=== PATIENT | female | born 1950 | race American Indian/Alaskan Native ===

== ENCOUNTER 2017-08-12 14:53 | Emergency (ER) | payer MEDICARE ==
--- NOTE | 2017-08-15 10:31 | CR ---
INDICATION: Fall/trauma left ribs. LEFT RIBS WITH CHEST: CHEST: PA view of the chest was obtained 08/12/2017 and compared with 2008, revealing increased calcification in the arch of the aorta with minimally increased tortuosity of the aorta. The heart remains normal in size and shape. An active infiltrate, effusion, contusion, or pneumothorax was not identified. IMPRESSION: No acute process - progressive ASD aorta. LEFT RIBS: Three views of the left ribs were obtained 08/12/2017 and compared with 11/11/2008. Laterally at the 5th and 6th ribs, there is slight deformity, compatible with old healed fracture sites present on the previous examination. An acute fracture or other definite bony abnormality of the ribs was not identified. IMPRESSION: 1. No acute fracture site identified. 2. Two old healed fracture sites again noted. MTDD
--- NOTE | 2017-08-15 10:34 | CR ---
INDICATION: Trauma to leg, dog knocked down. LEFT TIBIA/FIBULA: Frontal and lateral views of the left tibia and fibula revealed minimal degenerative change at the medial intercondylar spine. The ankle mortise and knee were otherwise unremarkable with no evidence of a fracture or dislocation identified. MTDD
--- NOTE | 2017-08-15 10:55 | ER ---
DATE SEEN: 08/12/2017 CHIEF COMPLAINT: Fall. HISTORY OF PRESENT ILLNESS: This 67-year-old woman presents with a history of walking a dog. The dog tripped her and she fell on her left chest and sprained her left ankle, and has left tib-fib discomfort. She denies shortness of breath or cough or chest pain except for the mild left axillary region discomfort. The patient is a [id number] smoker (half a pack per day for 40 years), has hypertension, status post bilateral bunionectomy, hammertoe surgery, and compromised left foot MP joint with instability secondary to surgery, is edentulous, has fibromyalgia, GERD, bladder spasm, denies drinking alcohol, and has ulcer disease. ALLERGIES: Gabapentin, IVP dye. MEDICATIONS: None. REVIEW OF SYSTEMS: Otherwise negative except as noted in HPI and past medical history. PHYSICAL EXAMINATION: VITAL SIGNS: Blood pressure 116/61, heart rate 93, respirations 18, oxygen saturation 93% (low normal), and temperature 37.4 degrees centigrade. The 93% may be her normal as she has chronic obstructive lung disease from smoking. BMI is 28.9 kg/m2, 67.1 kg. GENERAL: Alert woman, who is edentulous, is in mild distress. She is accompanied by daughter. HEENT: PERRLA intact. Pharynx without abnormality except for edentulous appearance. Uvula and tongue are midline. Speech appropriate. NECK: No bruits. No thyromegaly. No masses in the neck. No murmurs. No tracheal tug. No tracheal deviation. LUNGS: Clear without rales, rhonchi, or wheezes. HEART: S1, S2. No murmur. Chest wall mild tenderness of the left 11th, 10th, 8th, 7th, and 6th ribs. There is reproducible pain at the midclavicular line and the anterior axillary line and also the sternal chondral joints. No ecchymosis, swelling, or laceration noted in the chest wall. ABDOMEN: Soft. No hepatosplenomegaly. No guarding. No abdominal discomfort. Bowel sounds normal. Palpation of the thoracic spine demonstrates pain from T3 down to L5. She states she has fibromyalgia and also states she has chronic low back and upper back pain, has more upper back pain today than usual. Today,she attributes the back to her baseline that she always has back pain and "arthritis." NEUROLOGIC: Deep tendon reflexes normal upper and lower extremities. Cranial nerves 2 through 12 intact. Gait appropriate and oriented x3. LEFT ANKLE: there is no swelling of the ankle, there is an abrasion of the ankle dermis. Inversion and eversion are without abnormality and no abnormality in the drawer sign. No proximal 5th metatarsal pain or pain of the metatarsals or phalanges of the toes. X-ray of her knee, left tib-fib, and left ankle are negative. No fracture. There is mild osteoporosis. The patient noted she has had a DEXA scan last week and it was a negative number, which means she does have osteoporosis. This confirms my impression of osteoporosis. Rib x-ray did not reveal fracture. ASSESSMENT: Soft tissue contusion left ribs with traumatic sternal chondritis, costochondritis left chest, left ankle sprain and abrasion. DIAGNOSES: 1. Left chest wall trauma with mild costochondritis, sternal chondritis, left ribs 6th through 11th. 2. Left tib-fib contusion, left ankle sprain, mild and 4 abrasions to the lower extremities. The patient will follow up next week and gradually progress or increase activity as tolerated.Because of her age and BEERS criteria, no narcotics were given to the patient. The patient advised the reason for not using narcotics. She felt comfortable with this plan. 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 OTHER DIAGNOSES: 1. Fibromyalgia, edentulous. 2. Mild shortness of breath secondary to left chest contusion. 3. Gastroesophageal reflux disease. 4. Bladder spasm, relieved with oxybutynin. 5. Depression. 6. Hypertension. 7. Mildly overweight. 8. History of gastric bypass and bunion surgery. The patient to follow up with doctor next week. /[id number] MAGGIE/NALINI CALVILLO
== END 2017-08-12 16:35 | disposition home or self-care (01) ==
LOC: FB.ED 14:53
DX: S93.402A Sprain of unspecified ligament of left ankle, initial encounter (principal); S20.212A Contusion of left front wall of thorax, initial encounter; M94.0 Chondrocostal junction syndrome [Tietze]; K21.9 Gastro-esophageal reflux disease without esophagitis; I10 Essential (primary) hypertension; F32.9 Major depressive disorder, single episode, unspecified; E66.3 Overweight; M79.7 Fibromyalgia; Z88.8 Allergy status to other drugs, medicaments and biological substances; Z91.041 Radiographic dye allergy status; W01.0XXA Fall on same level from slipping, tripping and stumbling without subsequent striking against object, initial encounter
CPT/HCPCS: 71101-LT; 73590-LT; 99283

== ENCOUNTER 2019-06-21 11:55 | Emergency (ER) | payer MEDICARE ==
[2019-06-21] MEDS ORDERED: traMADol 50 MG Tab PO ONE (12:27)
[2019-06-21] MEDS ORDERED: Acetaminophen 500 MG Tab PO ONE (12:27)
[2019-06-21] MEDS ORDERED: Cyclobenzaprine 10 MG Tab PO ONE (12:27)
--- NOTE | 2019-06-21 12:42 | EDM.PDOC ---
ED HPI GENERAL MEDICAL PROBLEM - General Chief Complaint: Back Pain or Injury Time Seen by Provider: 06/21/19 12:00 Source of Information: Reports: Patient History Limitations: Reports: No Limitations - History of Present Illness INITIAL COMMENTS - FREE TEXT/NARRATIVE: Patient presented to the ED because of a chronic neck and left shoulder pain. She has a history of OA and is taking tylneol for pain without any significant relief. Her friend gave her tramadol which she took and helped with her pain. Her pain is 5/10. Lower back radiating into R knee, L shoulder Pain Score (Numeric/FACES): 10 - Related Data Allergies Allergy/AdvReac Type Severity Reaction Status Date / Time gabapentin Allergy Confusion Verified 06/21/19 12:00 Iodinated Contrast Media Allergy Burning Verified 06/21/19 12:00 [Iodinated Contrast- Oral and IV Dye] Home Meds: Home Meds Aspirin 81 mg PO DAILY 08/12/17 [History] Metoprolol Succinate 25 mg PO DAILY 08/12/17 [History] busPIRone [Buspar] 5 mg PO TID 08/12/17 [History] Folic Acid 1 mg DAILY 06/21/19 [History] Pantoprazole Sodium [Protonix] 40 mg PO BID 06/21/19 [History] Sucralfate 1 gm QID 06/21/19 [History] Venlafaxine HCl [Venlafaxine ER] 300 mg DAILY 06/21/19 [History] tiZANidine 2 mg PO BEDTIME 06/21/19 [History] tiZANidine 2 mg PO Q8H PRN #30 cap 06/21/19 [Rx] traMADol HCl [Tramadol HCl] 100 mg PO Q8H PRN #30 tablet 06/21/19 [Rx] Past Medical History Cardiovascular History: Reports: Hypertension Gastrointestinal History: Reports: Gastritis, GERD, GI Bleed, PUD Genitourinary History: Reports: Urinary Incontinence Other Genitourinary History: stress incont. Other [employer]ILRO[employer] History: G0 Musculoskeletal History: Reports: Arthritis, Back Pain, Chronic, Fracture, Fibromyalgia, Osteoarthritis Other Musculoskeletal History: hx fx R forearm & wrist, Psychiatric History: Reports: Addiction, Anxiety, Depression, Panic Attack Other Psychiatric History: hx ETOH abuse, recovering x past 4 years Endocrine/Metabolic History: Reports: Obesity/BMI 30+ Hematologic History: Reports: Anemia, Blood Transfusion(s) - Infectious Disease History Infectious Disease History: Reports: Chicken Pox, Measles, Mumps, Shingles - Past Surgical History Cardiovascular Surgical History: Reports: None GI Surgical History: Reports: Appendectomy, Bariatric Procedure, Cholecystectomy , Colonoscopy, EGD, Hernia Repair/Other Female Surgical History: Reports: Hysterectomy, Salpingo-Oophorectomy Neurological Surgical History: Reports: Spinal Fusion Other Neurological Surgeries/Procedures: spinal fusion x 2 Musculoskeletal Surgical History: Reports: None, Other (See Below) Other Musculoskeletal Surgeries/Procedures:: back surgery/fusion x 2 Social & Family History - Family History Family Medical History: Noncontributory - Tobacco Use Smoking Status *Q: Current Every Day Smoker Years of Tobacco use: 50 Packs/Tins Daily: 0.2 - Caffeine Use Caffeine Use: Reports: Coffee, Soda - Recreational Drug Use Recreational Drug Use: No ED ROS GENERAL - Review of Systems Review Of Systems: See Below Constitutional: Reports: No Symptoms HEENT: Reports: No Symptoms Respiratory: Reports: No Symptoms Cardiovascular: Reports: No Symptoms Endocrine: Reports: No Symptoms GI/Abdominal: Reports: No Symptoms : Reports: No Symptoms Musculoskeletal: Reports: Shoulder Pain, Muscle Stiffness Skin: Reports: No Symptoms Neurological: Reports: No Symptoms Psychiatric: Reports: No Symptoms Hematologic/Lymphatic: Reports: No Symptoms ED EXAM,LOWER BACK PAIN/INJURY - Physical Exam Exam: See Below Exam Limited By: No Limitations General Appearance: Alert, No Apparent Distress Eye Exam: Bilateral Eye: PERRL Ears: Normal External Exam, Normal Canal Nose: Normal Inspection, Normal Mucosa, No Blood Throat/Mouth: Normal Inspection, Normal Lips, Normal Teeth Head: Atraumatic, Normocephalic Neck: Normal Inspection, Supple, Non-Tender, Full Range of Motion Respiratory/Chest: No Respiratory Distress, Lungs Clear, Normal Breath Sounds Cardiovascular: Normal Peripheral Pulses, Regular Rate, Rhythm, No Edema, No Gallop GI/Abdominal: Normal Bowel Sounds, Soft, Non-Tender, No Organomegaly Back Exam: Normal Inspection, Full Range of Motion Extremities: Normal Inspection, Normal Range of Motion, Other (tenderness left shoulder.) Course - Vital Signs Text/Narrative:: tramadol 100 mg po x1 tylenol 1000 mg po x1 Last Recorded V/S: Last Vital Signs Temp 36.9 C 06/21/19 11:55 Pulse 67 06/21/19 13:00 Resp 18 06/21/19 13:00 BP 152/63 H 06/21/19 13:00 Pulse Ox 100 06/21/19 13:00 - Orders/Labs/Meds Meds: Medications Discontinued Medications Generic Name Dose Route Start Last Admin Trade Name Cruzitoq PRN Reason Stop Dose Admin Acetaminophen 1,000 mg 06/21/19 12:27 06/21/19 12:50 Tylenol Extra Strength PO 06/21/19 12:28 1,000 mg ONETIME ONE Administration Cyclobenzaprine HCl 10 mg 06/21/19 12:27 06/21/19 12:50 Flexeril PO 06/21/19 12:28 10 mg ONETIME ONE Administration Tramadol HCl 100 mg 06/21/19 12:27 06/21/19 12:50 Ultram PO 06/21/19 12:28 100 mg ONETIME ONE Administration Departure - Departure Time of Disposition: 13:30 Disposition: Home, Self-Care 01 Condition: Good Clinical Impression: Chronic pain, Osteoarthritis - Discharge Information Prescriptions: tiZANidine 2 mg PO Q8H PRN #30 cap PRN Reason: Muscle Spasm traMADol HCl [Tramadol HCl] 100 mg PO Q8H PRN #30 tablet PRN Reason: Pain Instructions: Cyclobenzaprine tablets, Osteoarthritis, Tramadol tablets, Chronic Pain, Adult Referrals: Nandini Gonzáles, HEALTH UNDERWRITER [Primary Care Provider] - Forms: ED Department Discharge Additional Instructions: please read discharge instructions on chronic pain and osteoarthritis take the following medicines all at the same time for better flores relief 1.Tizanidine 2mg every 8 hours as needed for muscle spasm 2.Tramadol 100 mg with tylenol 1000 mg every 8 hours as needed for pain Follow up as needed Sepsis Event Note - Evaluation Sepsis Screening Result: No Definite Risk - Focused Exam Vital Signs: Vital Signs Temp Pulse Resp BP Pulse Ox 06/21/19 13:00 67 18 152/63 H 100 06/21/19 11:55 36.9 C 50 L 18 133/71 99 Date Exam was Performed: 06/21/19 Time Exam was Performed: 22:55
== END 2019-06-21 13:13 | disposition home or self-care (01) ==
LOC: FB.ED 11:55
DX: M19.012 Primary osteoarthritis, left shoulder (principal); G89.29 Other chronic pain; K21.9 Gastro-esophageal reflux disease without esophagitis; F41.9 Anxiety disorder, unspecified; F32.9 Major depressive disorder, single episode, unspecified; E66.9 Obesity, unspecified; Z68.31 Body mass index [BMI] 31.0-31.9, adult; I10 Essential (primary) hypertension; F17.210 Nicotine dependence, cigarettes, uncomplicated; Z91.041 Radiographic dye allergy status; Z88.8 Allergy status to other drugs, medicaments and biological substances; Z79.82 Long term (current) use of aspirin; Z79.899 Other long term (current) drug therapy
CPT/HCPCS: 99283; A9270-GY

== ENCOUNTER 2020-04-23 17:04 | Emergency (ER) | payer MEDICARE ==
[2020-04-23] MEDS ORDERED: Sodium Chloride 0.9% 10 ML Syringe FLUSH PRN (17:11)
[2020-04-23] MEDS ORDERED: Morphine 2 MG/ML SYRINGE IVPUSH ONE (17:12)
[2020-04-23] MEDS ORDERED: Sodium Chloride 0.9% 1,000 ML IV SCH (17:15)
--- NOTE | 2020-04-23 17:18 | EDM.PDOC ---
ED HPI GENERAL MEDICAL PROBLEM - General Stated Complaint: FLANK PAIN Time Seen by Provider: 04/23/20 17:10 Source of Information: Reports: Patient History Limitations: Reports: No Limitations - History of Present Illness INITIAL COMMENTS - FREE TEXT/NARRATIVE: Patient presented to the ED because of left flank pain which started at 0600. The pain is sharp, 10/10. There is no associated nausea,vomiting, fever, chills. She has a history of kidney stone many years ago and was surgically removed. left flank pain Pain Score (Numeric/FACES): 10 - Related Data Allergies Allergy/AdvReac Type Severity Reaction Status Date / Time gabapentin Allergy Confusion Verified 06/21/19 12:00 Iodinated Contrast Media Allergy Burning Verified 06/21/19 12:00 [Iodinated Contrast- Oral and IV Dye] Home Meds: Home Meds Aspirin 81 mg PO DAILY 08/12/17 [History] Metoprolol Succinate 25 mg PO DAILY 08/12/17 [History] busPIRone [Buspar] 5 mg PO TID 08/12/17 [History] Folic Acid 1 mg DAILY 06/21/19 [History] Pantoprazole Sodium [Protonix] 40 mg PO BID 06/21/19 [History] Sucralfate 1 gm QID 06/21/19 [History] Venlafaxine HCl [Venlafaxine ER] 300 mg DAILY 06/21/19 [History] tiZANidine 2 mg PO BEDTIME 06/21/19 [History] tiZANidine 2 mg PO Q8H PRN #30 cap 06/21/19 [Rx] traMADol HCl [Tramadol HCl] 100 mg PO Q8H PRN #30 tablet 06/21/19 [Rx] Past Medical History Cardiovascular History: Reports: Hypertension Gastrointestinal History: Reports: Gastritis, GERD, GI Bleed, PUD Genitourinary History: Reports: Urinary Incontinence Other Genitourinary History: stress incont. Other INSURANCE ADJUSTER History: G0 Musculoskeletal History: Reports: Arthritis, Back Pain, Chronic, Fracture, Fibromyalgia, Osteoarthritis Other Musculoskeletal History: hx fx R forearm & wrist, Psychiatric History: Reports: Addiction, Anxiety, Depression, Panic Attack Other Psychiatric History: hx ETOH abuse, recovering x past 4 years Endocrine/Metabolic History: Reports: Obesity/BMI 30+ Hematologic History: Reports: Anemia, Blood Transfusion(s) - Infectious Disease History Infectious Disease History: Reports: Chicken Pox, Measles, Mumps, Shingles - Past Surgical History Cardiovascular Surgical History: Reports: None GI Surgical History: Reports: Appendectomy, Bariatric Procedure, Cholecystectomy, Colonoscopy, EGD, Hernia Repair/Other Female Surgical History: Reports: Hysterectomy, Salpingo-Oophorectomy Neurological Surgical History: Reports: Spinal Fusion Other Neurological Surgeries/Procedures: spinal fusion x 2 Musculoskeletal Surgical History: Reports: None, Other (See Below) Other Musculoskeletal Surgeries/Procedures:: back surgery/fusion x 2 Social & Family History - Family History Family Medical History: No Pertinent Family History - Caffeine Use Caffeine Use: Reports: Coffee, Soda ED ROS GENERAL - Review of Systems Review Of Systems: See Below Constitutional: Reports: No Symptoms HEENT: Reports: No Symptoms Respiratory: Reports: No Symptoms Cardiovascular: Reports: No Symptoms Endocrine: Reports: No Symptoms GI/Abdominal: Reports: No Symptoms : Reports: Flank Pain Musculoskeletal: Reports: No Symptoms Skin: Reports: No Symptoms ED EXAM, GI/ABD - Physical Exam Exam: See Below Exam Limited By: No Limitations General Appearance: Alert, No Apparent Distress Ears: Normal External Exam, Normal Canal, Hearing Grossly Normal Nose: Normal Inspection, Normal Mucosa Throat/Mouth: Normal Inspection, Normal Lips, Normal Teeth Head: Atraumatic, Normocephalic Neck: Normal Inspection, Supple, Non-Tender, Full Range of Motion Respiratory/Chest: No Respiratory Distress, Lungs Clear, Normal Breath Sounds, No Accessory Muscle Use, Chest Non-Tender Cardiovascular: Normal Peripheral Pulses, Regular Rate, Rhythm, No Edema, No Gallop, No JVD, No Murmur GI/Abdominal Exam: Normal Bowel Sounds, Soft, No Organomegaly, Other (left CVAT) Back Exam: Normal Inspection, Full Range of Motion Extremities: Normal Inspection, Normal Range of Motion, Non-Tender, No Pedal Edema, Normal Capillary Refill Course - Vital Signs Text/Narrative:: Labs/Abd-pelvis CT NS 1 L bolus Morphine 2 mg IV x1 Last Recorded V/S: Last Vital Signs Temp 37.2 C 04/23/20 17:04 Pulse 87 04/23/20 17:04 Resp 18 04/23/20 17:04 BP 158/76 H 04/23/20 17:04 Pulse Ox 100 04/23/20 17:04 - Orders/Labs/Meds Orders: Active Orders 24 hr Category Date Time Status CULTURE URINE [RM] Stat Lab 04/23/20 18:43 Ordered Sodium Chloride 0.9% [Normal Saline] 1,000 ml Med 04/23/20 17:15 Active IV ASDIRECTED Sodium Chloride 0.9% [Saline Flush] Med 04/23/20 17:11 Active 10 ml FLUSH ASDIRECTED PRN Saline Lock Insert [OM.PC] Routine Oth 04/23/20 17:11 Ordered Medication Orders Sodium Chloride (Normal Saline) 1,000 mls @ 999 mls/hr IV ASDIRECTED ANASTASIA Last Admin: 04/23/20 17:34 Dose: 999 mls/hr Documented by: HANANE Sodium Chloride (Saline Flush) 10 ml FLUSH ASDIRECTED PRN PRN Reason: Keep Vein Open Last Admin: 04/23/20 17:35 Dose: 10 ml Documented by: [id number] Labs: Laboratory Tests 04/23/20 04/23/20 04/23/20 Range/Units 17:20 17:20 18:20 WBC 5.4 (3.0-10.3) x10-3/uL RBC 4.24 (3.60-5.20) x10(6)uL Hgb 11.9 (11.4-15.5) g/dL Hct 37.8 (34.2-48.2) % MCV 89.1 (76.7-100.5) fL MCH 28.0 (23.9-33.9) pg MCHC 31.5 L (31.9-34.8) g/dL RDW 15.0 (12.3-16.5) % Plt Count 250 (151-488) x10(3)uL MPV 8.2 (7.1-12.4) fL Neut % (Auto) 42.3 (30.8-76.2) % Lymph % (Auto) 44.0 (18.4-52.1) % [place] % (Auto) 8.7 (4.4-15.7) % Eos % (Auto) 3.9 (0.6-8.1) % Baso % (Auto) 1.1 (0.2-1.5) % Neut # (Auto) 2.3 (1.5-6.3) x10-3/uL Lymph # (Auto) 2.4 (1.0-4.4) x10-3/uL [place] # (Auto) 0.5 (0.3-1.0) x10-3/uL Eos # (Auto) 0.2 (0.0-0.8) x10-3/uL Baso # (Auto) 0.1 (0.0-0.1) x10-3/uL Sodium 140 (135-145) mmol/L Potassium 4.3 (3.5-5.3) mmol/L Chloride 104 (100-110) mmol/L Carbon Dioxide 28 (21-32) mmol/L BUN 15 (7-18) mg/dL Creatinine 1.1 H (0.55-1.02) mg/dL Est Cr Clr Drug Dosing TNP Estimated GFR (MDRD) 49 L (>60) BUN/Creatinine Ratio 13.6 (9-20) Glucose 100 (80-116) mg/dL Calcium 8.9 (8.6-10.2) mg/dL Urine Color Yellow (YELLOW) Urine Appearance Clear (CLEAR) Urine pH 7.0 H (5.0-6.5) Ur Specific [place] 1.005 L (1.010-1.025) Urine Protein Negative (NEGATIVE) mg/dL Urine Glucose (UA) Normal (NORMAL) mg/dL Urine Ketones Negative (NEGATIVE) mg/dL Urine Occult Blood Negative (NEGATIVE) Urine Nitrite Negative (NEGATIVE) Urine Bilirubin Negative (NEGATIVE) Urine Urobilinogen Normal (NEGATIVE) mg/dL Ur Leukocyte Esterase Moderate H (NEGATIVE) Urine RBC 0-5 (0-5) Urine WBC 0-5 (0-5) Ur Squamous Epith Cells Occasional (NS,R,O) Urine Bacteria Few H (NS) Meds: Medications Generic Name Dose Route Start Last Admin Trade Name Freq PRN Reason Stop Dose Admin Sodium Chloride 1,000 mls @ 999 mls/hr 04/23/20 17:15 04/23/20 17:34 Normal Saline IV 999 mls/hr ASDIRECTED ANASTASIA Administration Sodium Chloride 10 ml 04/23/20 17:11 04/23/20 17:35 Saline Flush FLUSH 10 ml ASDIRECTED PRN Administration Keep Vein Open Discontinued Medications Generic Name Dose Route Start Last Admin Trade Name Freq PRN Reason Stop Dose Admin Morphine Sulfate 2 mg 04/23/20 17:12 04/23/20 17:34 Morphine IVPUSH 04/23/20 17:13 2 mg ONETIME ONE Administration Departure - Departure Time of Disposition: 18:45 Disposition: Home, Self-Care 01 Condition: Good Clinical Impression: UTI (urinary tract infection), Chronic low back pain, DDD (degenerative disc disease) - Discharge Information Instructions: Urinary Tract Infection, Adult, [id number] Additional Instructions: Please read discharge instructions on UTI and Chronic low back pain Increase oral fluids Bactrim DS twice daily for 3 days Follow up as needed Sepsis Event Note (ED) - Focused Exam Vital Signs: Vital Signs Temp Pulse Resp BP Pulse Ox 04/23/20 17:04 37.2 C 87 18 158/76 H 100 - My Orders Last 24 Hours: My Active Orders 04/23/20 17:11 Sodium Chloride 0.9% [Saline Flush] 10 ml FLUSH ASDIRECTED PRN Saline Lock Insert [OM.PC] Routine 04/23/20 17:15 Sodium Chloride 0.9% [Normal Saline] 1,000 ml IV ASDIRECTED 04/23/20 18:43 CULTURE URINE [RM] Stat - Assessment/Plan Last 24 Hours: My Active Orders 04/23/20 17:11 Sodium Chloride 0.9% [Saline Flush] 10 ml FLUSH ASDIRECTED PRN Saline Lock Insert [OM.PC] Routine 04/23/20 17:15 Sodium Chloride 0.9% [Normal Saline] 1,000 ml IV ASDIRECTED 04/23/20 18:43 CULTURE URINE [RM] Stat
--- NOTE | 2020-04-23 18:42 | CT ---
INDICATION: Left flank pain. History of kidney stone. CT ABDOMEN AND PELVIS WITHOUT CONTRAST: Spiral 2.5 mm axial sections were obtained through the abdomen and pelvis with sagittal and coronal reconstructions without IV contrast 04/23/20 - comparison 12/19/12. Total exam DLP was 1088.15 mGy-cm. Minimal scarring is again suggested at the lingula with no active infiltrate or effusion suggested. A moderate size fixed hiatal hernia is again noted with evidence of gastric bypass surgery noted. The heart did not appear enlarged. No pericardial effusion was seen. The gallbladder is absent, compatible with history of its removal. The liver, adrenal glands, spleen, and pancreas appear to be normal. No retroperitoneal mass was noted. Evidence of hernia surgery is noted in the lower abdomen/pelvis. The appendix is absent, compatible with history of its removal. No evidence of free air or bowel obstruction was identified. The uterus is absent, compatible with history of its removal. Thickening of the wall of the urinary bladder is noted, which may be on the basis of cystitis, but should be correlated clinically. No definite hernia was identified. No evidence of renal calcinosis or obstructive uropathy was identified. Mild renal cortical scarring is noted. No definite renal mass was demonstrated. Fusion is again noted with rods and pedicle screws at L3 through L5 and appears fairly stable. There is again noted retrolisthesis grade 1-2 at the L2-3 level with sclerosis, narrowed disk space and vacuum disk phenomenon again noted and appearing moderately progressive. Additionally, there is now a new finding of degenerative hypertrophic changes with sclerosis, subchondral cystic changes and narrowing of disk space at L1-2 with vacuum disk phenomenon also noted - progressive osteoarthritis and disk disease at L1-2 is also seen. No organomegaly, mass lesions or free fluid collections were identified, except as noted above. IMPRESSION: 1. Progressive degenerative changes and disk disease L1-2 and L2-3 with stable- appearing fusion at L3 through L5. 2. Thickening of the urinary bladder wall, which may represent cystitis, but should be correlated clinically. 3. Postcholecystectomy, postappendectomy, posthysterectomy, post gastric bypass surgery. 4. Moderate size fixed hiatal hernia again noted. 5. 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 6. No evidence of obstructive uropathy or renal masses. However, there is evidence of renal cortical scarring at the kidneys, most severe at the upper pole posteriorly of the left kidney. Report was called to Dr. Welch at 1758 hours. [facility]
[2020-04-23] MEDS ORDERED: Sulfamethoxazole/Trimethoprim 800-160 MG Tab PO ONE (18:49)
== END 2020-04-23 19:00 | disposition home or self-care (01) ==
LOC: FB.ED 17:04
DX: N39.0 Urinary tract infection, site not specified (principal); M51.36 Other intervertebral disc degeneration, lumbar region; I10 Essential (primary) hypertension; K21.9 Gastro-esophageal reflux disease without esophagitis; M19.90 Unspecified osteoarthritis, unspecified site; E66.9 Obesity, unspecified; Z68.31 Body mass index [BMI] 31.0-31.9, adult; Z88.8 Allergy status to other drugs, medicaments and biological substances; Z91.041 Radiographic dye allergy status; Z79.82 Long term (current) use of aspirin; Z79.899 Other long term (current) drug therapy
CPT/HCPCS: 36415; 74176; 80048; 81001; 85025; 87086; 96374; 99283; 99284-25; A9270-GY; J2270; J7030

== ENCOUNTER 2021-03-03 21:14 | Emergency (ER) | payer MEDICARE ==
--- NOTE | 2021-03-03 21:29 | EDM.PDOC ---
ED HPI GENERAL MEDICAL PROBLEM - General Stated Complaint: HIGH POTASSIUM Time Seen by Provider: 03/03/21 21:25 Source of Information: Reports: Patient - History of Present Illness INITIAL COMMENTS - FREE TEXT/NARRATIVE: 70-year-old lady was seen by her primary care physician earlier today and found to have an elevated potassium at 6.0. The provider called and let us know that she may be coming to the emergency room tonight because of this finding and thinks that there may have been some hemolyzed station of the potassium. She states that she has absolutely no acute complaints and specifically denies fever, chills, flulike symptoms, chest pain, shortness of breath, arthralgias, myalgias, change in bowel or bladder habits. She does have chronic orthopedic pain/complaints. Generalized Pain Score (Numeric/FACES): 8 - Related Data Allergies Allergy/AdvReac Type Severity Reaction Status Date / Time gabapentin Allergy Confusion Verified 03/03/21 21:29 Iodinated Contrast Media Allergy Burning Verified 03/03/21 21:29 [Iodinated Contrast- Oral and IV Dye] Home Meds: Home Meds Aspirin 81 mg PO DAILY 08/12/17 [History] Metoprolol Succinate 25 mg PO DAILY 08/12/17 [History] busPIRone [Buspar] 5 mg PO TID 08/12/17 [History] Folic Acid 1 mg DAILY 06/21/19 [History] Pantoprazole Sodium [Protonix] 40 mg PO BID 06/21/19 [History] Sucralfate 1 gm QID 06/21/19 [History] Venlafaxine HCl [Venlafaxine ER] 300 mg DAILY 06/21/19 [History] tiZANidine 2 mg PO BEDTIME 06/21/19 [History] tiZANidine 2 mg PO Q8H PRN #30 cap 06/21/19 [Rx] traMADol HCl [Tramadol HCl] 100 mg PO Q8H PRN #30 tablet 06/21/19 [Rx] Past Medical History Cardiovascular History: Reports: Hypertension Gastrointestinal History: Reports: Gastritis, GERD, GI Bleed, PUD Genitourinary History: Reports: Urinary Incontinence, Other (See Below) Other Genitourinary History: stress incont. Other FINANCIAL INTERN History: G0 Musculoskeletal History: Reports: Arthritis, Back Pain, Chronic, Fracture, Fibromyalgia, Osteoarthritis Other Musculoskeletal History: hx fx R forearm & wrist, Psychiatric History: Reports: Addiction, Anxiety, Depression, Panic Attack Other Psychiatric History: hx ETOH abuse, recovering x past 4 years Endocrine/Metabolic History: Reports: Obesity/BMI 30+ Hematologic History: Reports: Anemia, Blood Transfusion(s) - Infectious Disease History Infectious Disease History: Reports: Chicken Pox, Measles, Mumps, Shingles - Past Surgical History Cardiovascular Surgical History: Reports: None GI Surgical History: Reports: Appendectomy, Bariatric Procedure, Cholecystectomy, Colonoscopy, EGD, Hernia Repair/Other Female Surgical History: Reports: Hysterectomy, Salpingo-Oophorectomy Neurological Surgical History: Reports: Spinal Fusion Other Neurological Surgeries/Procedures: spinal fusion x 2 Musculoskeletal Surgical History: Reports: None, Other (See Below) Other Musculoskeletal Surgeries/Procedures:: back surgery/fusion x 2 Social & Family History - Family History Family Medical History: No Pertinent Family History - Caffeine Use Caffeine Use: Reports: Coffee, Soda ED ROS GENERAL - Review of Systems Review Of Systems: See Below Constitutional: Reports: No Symptoms HEENT: Reports: No Symptoms Respiratory: Reports: No Symptoms Cardiovascular: Reports: No Symptoms Endocrine: Reports: No Symptoms GI/Abdominal: Reports: No Symptoms : Reports: No Symptoms Musculoskeletal: Reports: Back Pain, Hand Pain Skin: Reports: No Symptoms Neurological: Reports: No Symptoms Psychiatric: Reports: No Symptoms Hematologic/Lymphatic: Reports: No Symptoms Immunologic: Reports: No Symptoms ED EXAM, GENERAL - Physical Exam Exam: See Below Exam Limited By: No Limitations General Appearance: Alert, WD/WN, No Apparent Distress Eye Exam: Bilateral Eye: EOMI Head: Atraumatic, Normocephalic Neck: Normal Inspection Respiratory/Chest: No Respiratory Distress, Lungs Clear Cardiovascular: Regular Rate, Rhythm Peripheral Pulses: 2+: Radial (L), Radial (R), Dorsalis Pedis (L), Dorsalis Pedis (R) GI/Abdominal: Normal Bowel Sounds, Non-Tender Back Exam: Normal Inspection Extremities: Normal Inspection Neurological: Alert, Oriented, CN II-XII Intact, Normal Cognition Psychiatric: Normal Affect, Normal Mood Course - Vital Signs Text/Narrative:: Review of EKG shows no acute abnormalities. Potassium was 3.9. Last Recorded V/S: Last Vital Signs Temp 36.9 C 03/03/21 21:15 Pulse 87 03/03/21 21:15 Resp 15 01/11/22 21:15 BP 157/68 H 03/03/21 21:15 Pulse Ox 100 03/03/21 21:15 - Orders/Labs/Meds Orders: Active Orders 24 hr Category Date Time Status EKG 12 Lead [EK] Routine Ther 03/03/21 21:21 Ordered Labs: Laboratory Tests 03/03/21 Range/Units 21:35 Potassium 3.9 (3.5-5.3) mmol/L Departure - Departure Time of Disposition: 21:52 Disposition: Home, Self-Care 01 Condition: Good Clinical Impression: Hyperkalemia Instructions: Hyperkalemia, [id number] Additional Instructions: Patient was asymptomatic and came in because of abnormal lab test her primary care physician's office. It looks like her lab test was hemolyzed. However, she is strongly encouraged to follow-up with her primary care physician. Sepsis Event Note (ED) - Focused Exam Vital Signs: Vital Signs Temp Pulse Resp BP Pulse Ox 03/03/21 21:15 36.9 C 87 15 157/68 H 100 - My Orders Last 24 Hours: My Active Orders 03/03/21 21:21 EKG 12 Lead [EK] Routine - Assessment/Plan Last 24 Hours: My Active Orders 03/03/21 21:21 EKG 12 Lead [EK] Routine
--- NOTE | 2021-03-03 21:30 | PCM.EKG ---
#1 Interpretation EKG Date: 03/03/21 Time: :22 EKG Interpretation Comments: Normal sinus rhythm, likely normal axis, rate 85, early R wave progression, no ST-T segment abnormalities in contiguous leads
== END 2021-03-03 22:15 | disposition home or self-care (01) ==
LOC: FB.ED 21:14
DX: E87.5 Hyperkalemia (principal); I10 Essential (primary) hypertension; K21.9 Gastro-esophageal reflux disease without esophagitis; E66.9 Obesity, unspecified; Z68.29 Body mass index [BMI] 29.0-29.9, adult; Z88.5 Allergy status to narcotic agent; Z91.041 Radiographic dye allergy status; Z79.82 Long term (current) use of aspirin; Z79.899 Other long term (current) drug therapy
CPT/HCPCS: 36415; 84132; 93005; 99285-25

== ENCOUNTER 2022-07-31 19:50 | Emergency (ER) | payer MEDICARE ==
[2022-07-31 20:54] LABS: BASOPHILS ABSOLUTE AUTO 0.1 x10-3/uL (0.0-0.1); BASOPHILS PERCENT AUTO 0.8 % (0.2-1.5); EOSINOPHILS ABSOLUTE AUTO 0.2 x10-3/uL (0.0-0.8); EOSINOPHILS PERCENT AUTO 2.4 % (0.6-8.1); HEMATOCRIT 40.1 % (34.2-48.2); HEMOGLOBIN 13.1 g/dL (11.4-15.5); LYMPHOCYTES ABSOLUTE AUTO 2.1 x10-3/uL (1.0-4.4); LYMPHOCYTES PERCENT AUTO 23.9 % (18.4-52.1); MEAN CORPUSCULAR HEMOGLOBIN 27.9 pg (23.9-33.9); MEAN CORPUSCULAR HGB CONC 32.7 g/dL (31.9-34.8); MEAN CORPUSCULAR VOLUME 85.3 fL (76.7-100.5); MEAN PLATELET VOLUME 7.9 fL (7.1-12.4); MONOCYTES ABSOLUTE AUTO 0.6 x10-3/uL (0.3-1.0); MONOCYTES PERCENT AUTO 6.6 % (4.4-15.7); NEUTROPHILS ABSOLUTE AUTO 5.7 x10-3/uL (1.5-6.3); NEUTROPHILS PERCENT AUTO 66.3 % (30.8-76.2); PLATELET COUNT,PLT 294 x10(3)uL (151-488); RED CELL DISTRIBUTION WIDTH 14.8 % (12.3-16.5); WHITE BLOOD CELL COUNT,WBC 8.6 x10-3/uL (3.0-10.3)
[2022-07-31 21:04] LABS: BLOOD UREA NITROGEN,BUN 15 mg/dL (7-18); BUN/CREATININE RATIO 11.5 (9-20); CALCIUM 9.8 mg/dL (8.6-10.2); CARBON DIOXIDE,CO2 29 mmol/L (21-32); CHLORIDE,CL 100 mmol/L (100-110); CREATININE 1.3 mg/dL (0.55-1.02); ESTIMATED GFR 43 mL/min (>60); GLUCOSE RANDOM 91 mg/dL (80-116); POTASSIUM,K 3.8 mmol/L (3.5-5.3); SODIUM,NA 138 mmol/L (135-145)
[2022-07-31 21:10] LABS: INR 1.28 (1.00-1.24); PROTHROMBIN TIME 13.1 sec (9.0-11.1); PTT,PARTIAL THROMBOPLSTIN TIME 25.7 SECONDS (24.4-33.2)
[2022-07-31 21:11] LABS: A/G RATIO 0.9; ALANINE AMINOTRANSFERASE,ALT 24 U/L (12-36); ALBUMIN 3.7 g/dL (3.2-4.6); ALKALINE PHOSPHATASE 75 IU/L (56-112); ASPARTATE AMNIOTRANSFERASE,AST 24 IU/L (5-25); BILIRUBIN TOTAL 0.3 mg/dL (0.1-1.3); PROTEIN TOTAL,TP 7.9 g/dL (6.0-8.0)
== END 2022-07-31 22:38 | disposition home or self-care (01) ==
LOC: FB.ED 19:50
DX: S00.03XA Contusion of scalp, initial encounter (principal); S50.01XA Contusion of right elbow, initial encounter; S80.01XA Contusion of right knee, initial encounter; K21.9 Gastro-esophageal reflux disease without esophagitis; M19.90 Unspecified osteoarthritis, unspecified site; F17.210 Nicotine dependence, cigarettes, uncomplicated; E66.9 Obesity, unspecified; Z68.27 Body mass index [BMI] 27.0-27.9, adult; Z88.8 Allergy status to other drugs, medicaments and biological substances; Z91.041 Radiographic dye allergy status; Z79.899 Other long term (current) drug therapy; Z79.82 Long term (current) use of aspirin; W50.0XXA Accidental hit or strike by another person, initial encounter
CPT/HCPCS: 36415; 70450; 73080-RT; 73562-RT; 80053; 85025; 85610; 85730; 99284